=== PATIENT | female | born 2005 | race Two or more races ===

== ENCOUNTER 2024-12-05 22:56 | Emergency (ER) | payer OTHER ==
[~2024-12-05] VITALS: Ht 160 cm; Wt 61.2 kg
[2024-12-05 23:43] VITALS: BP 123/84; O2SAT 99
[2024-12-06 03:51] LABS: CALCIUM 9.5 mg/dL (8.5-10.1); CREATININE SERUM 0.59 mg/dL (0.55-1.02); GFR 131.31; POTASSIUM 4.28 mEq/L (3.5-5.1)
[2024-12-06 03:55] LABS: HEMATOCRIT 37.1 % (36.0-45.00); MEAN CELL VOLUME 76.7 fL (80.00-100.00); MEAN CORPUSCULAR HEMOGLOBIN 24.8 pg (27.00-32.0); MEAN CORPUSCULAR HGB CONC 32.4 g/dl (32.0-36.0); PLATELET COUNT 218 K/uL (150-450); RED BLOOD COUNT 4.85 M/uL (4.00-6.00); RED CELL DISTRIBUTION WIDTH 15.1 % (11.5-14.5)
== END 2024-12-06 04:38 ==
LOC: ER 22:59
PROVIDERS: General Practice
DX: R00.2 Palpitations (principal)